=== PATIENT | female | born 1950 | race Hispanic/Latino ===

== ENCOUNTER 2017-09-11 14:28 | Emergency (ER) | payer MEDICARE, OTHER ==
[~2017-09-11] VITALS: Ht 154.9 cm; Wt 65.8 kg
[~2017-09-11 14:28] MED LIST: ASPIR 8181 MG PO; ASPIRIN81 MG OP; CALCIFEROL8000 U/ML PO; CALCIUM CARBON500 MG PO; CELEBREX100 MG PO; CELEXA40 MG PO; CITALOPRAM HBR20 MG PO; LISINOPRIL40 MG PO; NIFEDIPINE ER30 M1 PO; NIFEDIPINE20 MG PO; OMEGA-31000 MG PO; PANTOPRAZOLE SO40 MG PO; PRAVASTATIN SOD40 MG PO; TIZANIDINE HCL4 M1 PO; TRAMADOL HCL100 M1 PO; TUMERIC PO; TYLENOL # 31 EA PO; XANAX0.5 MG PO; ZOFRAN ODT4 MG SL
[2017-09-11] MEDS ORDERED: ALBUTEROL/IPRATROPIUM 3 ML NEB NEB ONE (15:00)
[2017-09-11] MEDS ORDERED: PREDNISONE 20 MG TAB PO ONE (15:00)
--- NOTE | 2017-09-11 15:43 | Diagnostic Imaging Report ---
EXAMINATION: CHEST 2 VIEWS INDICATION: Shortness of breath. COMPARISON: Chest x-ray 09/08/2015 FINDINGS: PA and lateral views TUBES and LINES: Partially visualized tubing overlying the left neck. LUNGS: Lungs are well inflated. Lungs are clear. There is no evidence of pneumonia or pulmonary edema. PLEURA: No pleural effusion or pneumothorax. HEART AND MEDIASTINUM: The cardiomediastinal silhouette is unremarkable. BONES AND SOFT TISSUES: No acute osseous lesion. Soft tissues are unremarkable. UPPER ABDOMEN: No free air under the diaphragm. IMPRESSION: 1. No acute thoracic abnormality. 2. Partially visualized tubing overlying the left neck. Signed by: Dr. Anthony Andre M.D. on 09/11/2017 3:40 PM
== END 2017-09-11 17:31 | disposition home or self-care (01) ==
LOC: ER 14:28
DX: R05 Cough (principal); J45.31 Mild persistent asthma with (acute) exacerbation; J30.1 Allergic rhinitis due to pollen
CPT/HCPCS: 71046; 94640; 99283

== ENCOUNTER → 2019-03-31 | Outpatient (CLI) | payer MEDICARE, OTHER ==
--- NOTE | 2019-03-31 12:16 | Diagnostic Imaging Report ---
Examination: MRI SPINE CERVICAL WO CONTRAST History: Neck pain. Comparison studies: None Technique: Sagittal T1, T2 and IR, axial T2 and axial gradient echo intravenous contrast: None Findings: Alignment: Straightening of normal lordosis. No scoliosis. Cervicomedullary junction: No abnormalities. Patent foramen magnum. Soft tissues: No T2 hyperintense inflammatory changes. Spinal cord: Normal in size and signal from the foramen magnum through T1. Vertebrae: No fractures, infection or neoplasm. Degenerative changes: C1-C2: No abnormalities. C2-C3: Mild right and severe left foraminal narrowing due to uncovertebral and facet arthropathy. No canal stenosis. C3-C4: Diffuse disc osteophyte complex and bilateral uncovertebral and facet arthropathy result in mild bilateral neural foraminal narrowing. No canal stenosis. C4-C5: Diffuse disc osteophyte, but some bilateral uncovertebral arthropathy result in moderate right and mild left neural foraminal narrowing. No canal stenosis. C5-C6: Left central disc protrusion and asymmetric to the left disc osteophyte complex, mild ligamentum flavum thickening and bilateral uncovertebral and facet arthropathy result in moderate right and severe left foraminal narrowing and mild canal stenosis. C6-C7: Diffuse disc osteophyte complex, mild ligamentum flavum thickening and bilateral uncovertebral arthropathy result in moderate right and mild left neural foraminal narrowing and mild canal stenosis. C7-T1: No abnormalities. IMPRESSION: 1. Degenerative changes from C2-C3 through C6-C7 with severe left foraminal narrowing at C5-C6 and moderate right foraminal narrowing from C4-C5 through C6-C7. 2. Mild canal stenosis at C5-C6 and C6-C7. Signed by: Dr. Samia Hobbs M.D. on 03/31/2019 12:13 PM
--- NOTE | 2019-03-31 12:47 | Diagnostic Imaging Report ---
TECHNIQUE: Magnetic resonance imaging of the LEFT SHOULDER was performed WITHOUT injected contrast. COMPARISON: None available. HISTORY: Left shoulder pain FINDINGS: MUSCLES AND TENDONS: Rotator Cuff: Tendons: Intact. Muscles: No focal muscle atrophy. Biceps Tendon: The long head of the biceps tendon is intact and within the intertubercular groove. GLENOHUMERAL JOINT: Glenoid Labrum: No displaced tear. Articular Cartilage: No focal defect. AC JOINT AND ACROMION: Mild hypertrophic degenerative changes of the acromioclavicular joint. Subacromial spurring BONE: No focal or infiltrative bone marrow replacing abnormality. No acute fracture. SOFT TISSUES: Subacromial subdeltoid bursa fluid. IMPRESSION: Intact rotator cuff without tear. Subacromial spurring with subacromial subdeltoid bursal fluid/bursitis. Signed by: Dr. Terrell Obregon M.D. on 03/31/2019 12:44 PM
--- NOTE | 2019-03-31 12:48 | Diagnostic Imaging Report ---
TECHNIQUE: Magnetic resonance imaging of the RIGHT SHOULDER was performed WITHOUT injected contrast. COMPARISON: None available. HISTORY: Right shoulder pain shoulder pain FINDINGS: MUSCLES AND TENDONS: Rotator Cuff: Tendons: Intact. Muscles: No focal muscle atrophy. Biceps Tendon: The long head of the biceps tendon is intact and within the intertubercular groove. GLENOHUMERAL JOINT: Glenoid Labrum: Superior labral tear. Articular Cartilage: No focal defect. AC JOINT AND ACROMION: Mild hypertrophic degenerative changes of the acromioclavicular joint. Subacromial spurring BONE: No focal or infiltrative bone marrow replacing abnormality. No acute fracture. SOFT TISSUES: Subacromial subdeltoid bursa fluid. IMPRESSION: Intact rotator cuff without tear. Superior labral tear. Subacromial spurring with subacromial subdeltoid bursal fluid/bursitis. Signed by: Dr. Terrell Obregon M.D. on 03/31/2019 12:45 PM
== END ==
LOC: MRI 09:16
PROVIDERS: ATTEND Specialist
DX: M54.2 Cervicalgia (principal); M25.512 Pain in left shoulder; M25.511 Pain in right shoulder
CPT/HCPCS: 72141

== ENCOUNTER → 2019-04-27 | Day surgery (SDC) | payer MEDICARE, OTHER ==
[2019-04-24 12:29] LABS: BASOPHILS # (AUTO) 0.1 (0.0-0.1); BASOPHILS % 0.9 % (0.0-1.0); EOSINOPHILS # (AUTO) 0.2 (0.0-0.4); HEMATOCRIT 41.9 % (34.2-44.1); HEMOGLOBIN 13.6 g/dL (12.0-16.0); LYMPHOCYTES # (AUTO) 2.3 (1.0-3.2); LYMPHOCYTES % 25.6 % (18.0-39.1); MEAN CORPUSCULAR HGB CONC 32.5 g/dL (31-35); MEAN CORPUSCULAR VOLUME 92.5 fL (81-99); MONOCYTES # (AUTO) 0.5 (0.2-0.8); MONOCYTES % 5.9 % (4.4-11.3); NEUTROPHILS # (AUTO) 5.9 (2.1-6.9); NEUTROPHILS % 65.3 % (38.7-80.0); PLATELET COUNT 291 x10e3/uL (140-360); RED BLOOD COUNT 4.53 x10e6/uL (3.6-5.1); RED CELL DISTRIBUTION WIDTH 12.7 % (11.7-14.4)
[~2019-04-27] MED LIST changes: +ATENOLOL50 MG PO; +DEXAMETHASONE SOD PHOS 10 MG/1 ML VIAL ONE; +IOPAMIDOL 200 MG/ML 20 ML VIAL IT ONE; +LEXAPRO10 MG PO; +LIDOCAINE HCL 1% 30ML-PF VIAL ONE; +LIDOCAINE HCL 2% LOCAL INJ 5 ML SDV VIAL INJ ONE; +MELOXICAM7.5 MG PO; +MIDAZOLAM HCL 2 MG/2 ML VIAL ONE; +PROPOFOL IV EMULSION 10 MG/ML 20 ML VIAL ONE
--- OUTSIDE RECORDS SUMMARY | 2019-04-27 06:03 | XMS REPORT ---
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 Allergies, Adverse Reactions, Alerts This patient has no known allergies or adverse reactions. Medications This patient has no known medications. Results Test Description Test Time Test Comments Text Results Atomic Results Result Comments MRI SHOULDER LEFT WO 2019-03-31 12:40:00 [facility] [address] [place] [address] Patient Name: KAYLIE NOVAK MR #: [id number] : 1950 Age/Sex: 69/F Req #: [id number] Adm Physician: Ordered by: BIBI LINDSAY MD Report #: [id number] Location: MRI Room/Bed: Procedure: [id number] MRI/MRI SHOULDER LEFT WO Exam Date: Exam Time: REPORT STATUS: Signed TECHNIQUE: Magnetic resonance imaging of the LEFT SHOULDER was per formed WITHOUT injected contrast. COMPARISON: None available. HISTORY: Left shoulder pain FINDINGS: MUSCLES AND TENDONS: Rotator Cuff: Tendons: Intact. Muscles: No focal muscle atrophy. Biceps Tendon: The long head of the biceps tendon is intact and within the intertubercular groove. GLENOHUMERAL JOINT: Glenoid Labrum: No displaced tear. Articular Cartilage: No focal defect. AC JOINT AND ACROMION: Mild hypertrophic degenerative changes of the acromioclavicular joint. Subacromial spurring BONE: No focal or infiltrative bone marrow replacing abnormality. No acute fracture. SOFT TISSUES: Subacromial subdeltoid bursa fluid. IMPRESSION: Intact rotator cuff without tear. Subacromial spurring with subacromial subdeltoid bursal fluid/bursitis. Signed by: Dr. Lalo Ly M.D. on 03/31/2019 12:44 PM Dictated By: LALO LY MD [id number] Transcribed By: MARITA on 03/31/19 1244 COPY TO: BIBI LINDSAY MD MRI SPINE CERVICAL WO 2019-03-31 12:00:00 [place] [address] Patient Name: KAYLIE NOVAK MR #: [id number] : 1950 Age/Sex: 69/F Req #: [id number] Adm Physician: Ordered by: BIBI LINDSAY MD Report #: [id number] Location: MRI Room/Bed: Procedure: [id number] MRI/MRI SPINE CERVICAL WO Exam Date: Exam Time: REPORT STATUS: Signed Examination: MRI SPINE CERVICAL WO CONTRAST History: Neck pain. Comparison studies: None Technique: Sagittal T1, T2 and IR, axial T2 and axial gradient echo intravenous contrast: None Findings: Alignment: Straightening of normal lordosis. No scoliosis. Cervicomedullary junction: No abnormalities. Patent foramen magnum. Soft tissues: No T2 hyperintense inflammatory changes. Spinal cord: Normal in size and signal from the foramen magnum through T1. Vertebrae: No fractures, infection or neoplasm. Degenerative changes: C1-C2: No abnormalities. C2-C3: Mild right and severe left foraminal narrowing due to uncovertebral and facet arthropathy. No canal stenosis. C3-C4: Diffuse disc osteophyte complex and bilateral uncovertebral and facet arthropathy result in mild bilateral neural foraminal narrowing. No canal stenosis. C4-C5: Diffuse disc osteophyte, but some bilateral uncovertebral arthropathy result in moderate right and mild left neural foraminal narrowing. No canal stenosis. C5-C6: Left central disc protrusion and asymmetric to the left disc osteophyte complex, mild ligamentum flavum thickening and bilateral uncovertebral and facet arthropathy result in moderate right and severe left foraminal narrowing and mild canal stenosis. C6-C7: Diffuse disc osteophyte complex, mild ligamentum flavum thickening and bilateral uncovertebral arthropathy result in moderate right and mild left neural foraminal narrowing and mild canal stenosis. C7-T1: No abnormalities. IMPRESSION: 1. Degenerative changes from C2-C3 through C6-C7 with severe left foraminal narrowing at C5-C6 and moderate right foraminal narrowing from C4-C5 through C6-C7. 2. Mild canal stenosis at C5-C6 and C6-C7. Signed by: Dr. Samia Hobbs M.D. on 03/31/2019 12:13 PM Dictated By: SAMIA MEEKS MD 1213 Transcribed By: MARITA on 03/31/19 1213 COPY TO: BIBI LINDSAY MD MRI SHOULDER RIGHT WO 2019-03-31 10:45:00 [place] [address] Patient Name: KAYLIE NOVAK MR #: [id number] : 1950 Age/Sex: 69/F Req #: [id number] Adm Physician: Ordered by: BIBI LINDSAY MD Report #: [id number] Location: MRI Room/Bed: Procedure: [id number] MRI/MRI SHOULDER RIGHT WO Exam Date: Exam Time: REPORT STATUS: Signed TECHNIQUE: Magnetic resonance imaging of the RIGHT SHOULDER was p erformed WITHOUT injected contrast. COMPARISON: None available. HISTORY: Right shoulder pain shoulder pain FINDINGS: MUSCLES AND TENDONS: Rotator Cuff: Tendons: Intact. Muscles: No focal muscle atrophy. Biceps Tendon: The long head of the biceps tendon is intact and within the intertubercular groove. GLENOHUMERAL JOINT: Glenoid Labrum: Superior labral tear. Articular Cartilage: No focal defect. AC JOINT AND ACROMION: Mild hypertrophic degenerative changes of the acromioclavicular joint. Subacromial spurring BONE: No focal or infiltrative bone marrow replacing abnormality. No acute fracture. SOFT TISSUES: Subacromial subdeltoid bursa fluid. IMPRESSION: Intact rotator cuff without tear. Superior labral tear. Subacromial spurring with subacromial subdeltoid bursal fluid/bursitis. Signed by: Dr. Lalo Ly M.D. on 03/31/2019 12:45 PM Dictated By: LALO LY MD 124 Transcribed By: MARITA on 03/31/19 1245 COPY TO: BIBI LINDSAY MD CHEST 2 VIEWS [place] [address] Patient Name: KAYLIE ONVAK MR #: [id number] : 1950 Age/Sex: 67/F Req #: [id number] Adm Physician: Ordered by: SMITH STEINBERG MD Report #: [id number] Location: ER Room/Bed: Procedure: [id number] DX/CHEST 2 VIEWS Exam Date: 09/11/17 Exam Time: 1525 REPORT STATUS: Signed EXAMINATION: CHEST 2 VIEWS INDICATION: Shortness of breath. COMPARISON: Chest x-ray 09/08/2015 FINDINGS: PA and lateral views TUBES and LINES: Partially visualized tubing overlying the left neck. LUNGS: Lungs are well inflated. Lungs are clear. There is no evidence of pneumonia or pulmonary edema. PLEURA: No pleural effusion or pneumothorax. HEART AND MEDIASTINUM: The cardiomediastinal silhouette is unremarkable. BONES AND SOFT TISSUES: No acute osseous lesion. Soft tissues are unremarkable. UPPER ABDOMEN: No free air under the diaphragm. IMPRESSION: 1. No acute thoracic abnormality. 2. Partially visualized tubing overlying the left neck. Signed by: Dr. Rachelle Chan M.D. on 09/11/2017 3:40 PM Dictated By: RACHELLE CHAN MD [id number] Transcribed By: MARITA on 09/11/17 3280 COPY TO: SMITH STEINBERG MD
[2019-04-27 08:00] VITALS: BP 135/63
== END | disposition home or self-care (01) ==
LOC: OR 05:59
PROVIDERS: ATTEND Physical Medicine & Rehabilitation Pain Medicine
DX: M47.22 Other spondylosis with radiculopathy, cervical region (principal); I10 Essential (primary) hypertension; E03.9 Hypothyroidism, unspecified; K21.9 Gastro-esophageal reflux disease without esophagitis; Z88.8 Allergy status to other drugs, medicaments and biological substances; Z01.810 Encounter for preprocedural cardiovascular examination; Z01.812 Encounter for preprocedural laboratory examination; Z79.82 Long term (current) use of aspirin
CPT/HCPCS: 36415; 64479; 64480 ×2; 85025; 93005; J1100; J2001 ×2; J2250; J2704; Q9967; 77003

== ENCOUNTER → 2019-12-21 | Day surgery (SDC) | payer MEDICARE, OTHER ==
[2019-12-15 12:38] LABS: BASOPHILS # (AUTO) 0.1 (0.0-0.1); BASOPHILS % 1.1 % (0.0-1.0); EOSINOPHILS # (AUTO) 0.2 (0.0-0.4); EOSINOPHILS % 3.1 % (0.0-6.0); HEMATOCRIT 40.4 % (34.2-44.1); LYMPHOCYTES % 27.3 % (18.0-39.1); MEAN CORPUSCULAR HEMOGLOBIN 29.7 pg (28-32); MEAN CORPUSCULAR HGB CONC 32.2 g/dL (31-35); MEAN CORPUSCULAR VOLUME 92.4 fL (81-99); MONOCYTES # (AUTO) 0.5 (0.2-0.8); MONOCYTES % 6.5 % (4.4-11.3); NEUTROPHILS # (AUTO) 4.5 (2.1-6.9); NEUTROPHILS % 61.7 % (38.7-80.0); PLATELET COUNT 254 x10e3/uL (140-360); RED BLOOD COUNT 4.37 x10e6/uL (3.6-5.1); RED CELL DISTRIBUTION WIDTH 12.6 % (11.7-14.4)
[~2019-12-21] MED LIST changes: -DEXAMETHASONE SOD PHOS 10 MG/1 ML VIAL ONE; +FENTANYL CITRATE/PF 100MCG/2 ML INJ ONE; -PROPOFOL IV EMULSION 10 MG/ML 20 ML VIAL ONE; +TRIAMCINOLONE ACET 40 MG/ML VIAL ONE
[2019-12-21 07:50] VITALS: BP 162/69
--- NOTE | 2019-12-21 11:38 | Diagnostic Imaging Report ---
OR Fluoroscopy: IMPRESSION: Fluoroscopy service provided in the OR. Interpretation not requested. Signed by: Clint Wilson MD on 12/21/2019 11:35 AM
== END | disposition home or self-care (01) ==
LOC: OR 05:33
PROVIDERS: ATTEND Physical Medicine & Rehabilitation Pain Medicine
DX: M47.892 Other spondylosis, cervical region (principal); M54.12 Radiculopathy, cervical region; I10 Essential (primary) hypertension; E03.9 Hypothyroidism, unspecified; K21.9 Gastro-esophageal reflux disease without esophagitis; Z88.8 Allergy status to other drugs, medicaments and biological substances; Z01.810 Encounter for preprocedural cardiovascular examination; Z01.812 Encounter for preprocedural laboratory examination; Z11.59 Encounter for screening for other viral diseases; Z79.82 Long term (current) use of aspirin
CPT/HCPCS: 36415; 64490; 64491; 64492; 85025; 93005; J2001 ×2; J2250; J3010; J3301; Q9967; U0002; 77003

== ENCOUNTER 2020-12-22 13:52 | Emergency (ER) | payer MEDICARE, OTHER ==
[~2020-12-22] VITALS: Ht 152.4 cm; Wt 61.2 kg
[~2020-12-22 13:52] MED LIST changes: -FENTANYL CITRATE/PF 100MCG/2 ML INJ ONE; -IOPAMIDOL 200 MG/ML 20 ML VIAL IT ONE; -LIDOCAINE HCL 1% 30ML-PF VIAL ONE; -LIDOCAINE HCL 2% LOCAL INJ 5 ML SDV VIAL INJ ONE; -MIDAZOLAM HCL 2 MG/2 ML VIAL ONE; -TRIAMCINOLONE ACET 40 MG/ML VIAL ONE
[2020-12-22] MEDS ORDERED: SODIUM CHLORIDE 0.9% 1000ML 1,000 ML IV STA (14:09)
[2020-12-22] MEDS ORDERED: ONDANSETRON HCL INJ 2MG/ML 2ML 2 MG/ML VIAL IV ONE (14:15)
[2020-12-22] MEDS ORDERED: ONDANSETRON HCL INJ 2MG/ML 2ML 2 MG/ML VIAL ONE (14:20)
[2020-12-22] MEDS ORDERED: SODIUM CHLORIDE 0.9% 1000ML 1,000 ML ONE (14:20)
[2020-12-22] MEDS ORDERED: FAMOTIDINE 20 MG/2 ML VIAL IV ONE ×2 (14:20→15:00)
[2020-12-22] MEDS ORDERED: ONDANSETRON ODT4 MG PO (15:52)
[2020-12-22] MEDS ORDERED: CEFDINIR300 MG PO (15:52)
[2020-12-22] MEDS ORDERED: FAMOTIDINE20 MG PO (15:52)
[2020-12-22 16:11] VITALS: BP 159/71
== END 2020-12-22 16:11 | disposition home or self-care (01) ==
LOC: FSED 14:15
DX: R11.2 Nausea with vomiting, unspecified (principal); K52.9 Noninfective gastroenteritis and colitis, unspecified; R05 Cough; Z20.822 Contact with and (suspected) exposure to COVID-19
CPT/HCPCS: 74022; 80053; 81003; 83518; 85025; 87400; 96365; 96374; 96376; 99284; J2405; J7030; U0002

== ENCOUNTER → 2022-08-26 | Outpatient (CLI) | payer MEDICARE, OTHER ==
[~2022-08-26] MED LIST changes: +CEFDINIR300 MG PO; +FAMOTIDINE20 MG PO; +ONDANSETRON ODT4 MG PO
== END ==
LOC: MAMMO 12:11
PROVIDERS: ATTEND Specialist
DX: Z12.31 Encounter for screening mammogram for malignant neoplasm of breast (principal); M85.88 Other specified disorders of bone density and structure, other site
CPT/HCPCS: 77067; 77080

== ENCOUNTER → 2024-10-25 | Day surgery (SDC) | payer MEDICARE, OTHER ==
[2024-10-23 14:04] LABS: BASOPHILS # (AUTO) 0.1 (0.0-0.1); BASOPHILS % 0.4 % (0.0-1.0); EOSINOPHILS # (AUTO) 0.2 (0.0-0.4); EOSINOPHILS % 1.6 % (0.0-6.0); HEMOGLOBIN 13.4 g/dL (12.0-16.0); LYMPHOCYTES # (AUTO) 4.5 (1.0-3.2); LYMPHOCYTES % 32.2 % (18.0-39.1); MEAN CORPUSCULAR HEMOGLOBIN 30.9 pg (28-32); MEAN CORPUSCULAR HGB CONC 33.5 g/dL (31-35); MEAN CORPUSCULAR VOLUME 92.2 fL (81-99); MONOCYTES % 7.1 % (4.4-11.3); NEUTROPHILS # (AUTO) 8.2 (2.1-6.9); NEUTROPHILS % 58.3 % (38.7-80.0); PLATELET COUNT 311 x10e3/uL (140-360); RED BLOOD COUNT 4.34 x10e6/uL (3.6-5.1); RED CELL DISTRIBUTION WIDTH 13.6 % (11.7-14.4); WHITE BLOOD COUNT 14.09 x10e3/uL (4.8-10.8)
[~2024-10-25] MED LIST changes: +ALENDRONATE SOD70 MG PO; +CYMBALTA60 MG PO; +LIDOCAINE HCL 2% LOCAL INJ 5 ML SDV VIAL INJ ONE; +METHOCARBAMOL750 MG PO; +NAPROSYN500 MG PO; +PROPOFOL IV EMULSION 10 MG/ML 20 ML VIAL ONE; +QUETIAPINE FUMA25 MG PO
[2024-10-25] MEDS: LACTATED RINGER'S 1,000 ML ONE (08:27)
[2024-10-25 09:58] VITALS: TEMP 97.9
[2024-10-25 10:20] VITALS: BP 145/72; PULSE 65; RESP 18; O2SAT 99
== END | disposition home or self-care (01) ==
LOC: OR 07:59
PROVIDERS: ATTEND Physical Medicine & Rehabilitation Pain Medicine
DX: M54.16 Radiculopathy, lumbar region (principal); M47.896 Other spondylosis, lumbar region; M06.9 Rheumatoid arthritis, unspecified; M25.552 Pain in left hip; M25.551 Pain in right hip; I10 Essential (primary) hypertension; E78.5 Hyperlipidemia, unspecified; K21.9 Gastro-esophageal reflux disease without esophagitis; F41.9 Anxiety disorder, unspecified; Z01.810 Encounter for preprocedural cardiovascular examination; Z01.812 Encounter for preprocedural laboratory examination; Z79.82 Long term (current) use of aspirin; Z79.1 Long term (current) use of non-steroidal anti-inflammatories (NSAID); Z79.899 Other long term (current) drug therapy
CPT/HCPCS: 36415; 64483; 64484; 85025; 93005; J2003; J2704; J7121; 77002

== ENCOUNTER → 2024-12-13 | Day surgery (SDC) | payer MEDICARE, OTHER ==
[2024-12-06 12:47] LABS: BASOPHILS % 1.2 % (0.0-1.0); EOSINOPHILS % 3.8 % (0.0-6.0); LYMPHOCYTES % 28.5 % (18.0-39.1); MONOCYTES % 6.6 % (4.4-11.3); NEUTROPHILS % 59.7 % (38.7-80.0); RED CELL DISTRIBUTION WIDTH 13.0 % (11.7-14.4)
[2024-12-13] MEDS: LACTATED RINGER'S 1,000 ML ONE (09:08)
[2024-12-13 10:40] VITALS: TEMP 97
[2024-12-13 11:10] VITALS: BP 140/61; PULSE 65; RESP 15; O2SAT 97
== END | disposition home or self-care (01) ==
LOC: OR 08:15
PROVIDERS: ATTEND Physical Medicine & Rehabilitation Pain Medicine
DX: M47.26 Other spondylosis with radiculopathy, lumbar region (principal); M47.22 Other spondylosis with radiculopathy, cervical region; M25.552 Pain in left hip; M25.551 Pain in right hip; I10 Essential (primary) hypertension; K21.9 Gastro-esophageal reflux disease without esophagitis; M06.9 Rheumatoid arthritis, unspecified; M19.91 Primary osteoarthritis, unspecified site; Z01.812 Encounter for preprocedural laboratory examination; Z79.899 Other long term (current) drug therapy; Z79.82 Long term (current) use of aspirin
CPT/HCPCS: 36415; 77003; 85025; J2003